=== PATIENT | male | born 1940 | race Caucasian/White ===

== ENCOUNTER → 2017-12-21 | Outpatient (CLI) | payer OTHER ==
[~2017-12-21] MED LIST: CIPRO500 MG PO; DOCUSATE SODIU100 MG PO; FLOMAX0.4 MG PO; HYDROCHLOROTHIA25 M2 PO; NORCO 5-325 TA1 EACH PO; SIMVASTATIN40 MG PO; URELLE TABLET1 TAB PO
== END ==
LOC: M.RAD 11:02
DX: M19.011 Primary osteoarthritis, right shoulder (principal)